=== PATIENT | female | born 1970 | race Caucasian/White ===

== ENCOUNTER 2018-06-22 09:03 | Emergency (ER) | payer OTHER ==
[~2018-06-22] VITALS: Ht 154.9 cm; Wt 59.0 kg
[~2018-06-22 09:03] MED LIST: BENTYL10 MG/ML; CIPRO500 MG PO; INDERAL LA80 MG; LEVSIN/SL0.125 MG PO; PRILOSEC20 MG; PROTONIX20 MG PO
[2018-06-22] MEDS ORDERED: SODIUM BICARBO325 MG PO (09:11)
== END 2018-06-22 15:13 | disposition home or self-care (01) ==
LOC: ER 09:03
DX: J03.90 Acute tonsillitis, unspecified (principal)

== ENCOUNTER 2018-06-23 09:31 | Inpatient (IN) | payer OTHER ==
[~2018-06-23] VITALS: Ht 154.9 cm; Wt 59.9 kg
[~2018-06-23 09:31] MED LIST changes: +SODIUM BICARBO325 MG PO
== END 2018-07-03 16:39 | disposition home or self-care (01) | DRG 193 ==
LOC: ER 09:31 → MEDI 22:14 → MEDJ 06-27 20:25
PROC: B246ZZZ Ultrasonography of Right and Left Heart (ICD-10-PCS; 2018-06-23)
PROC: 3E0F7GC Introduction of Other Therapeutic Substance into Respiratory Tract, Via Natural or Artificial Opening (ICD-10-PCS; principal; 2018-06-24)
PROC: 4A12X4Z Monitoring of Cardiac Electrical Activity, External Approach (ICD-10-PCS; 2018-06-24)
PROC: 4A033R1 Measurement of Arterial Saturation, Peripheral, Percutaneous Approach (ICD-10-PCS; 2018-06-25)
PROC: BB24Y0Z Computerized Tomography (CT Scan) of Bilateral Lungs using Other Contrast, Unenhanced and Enhanced (ICD-10-PCS; 2018-06-28)
PROC: BW2FY0Z Computerized Tomography (CT Scan) of Neck using Other Contrast, Unenhanced and Enhanced (ICD-10-PCS; 2018-06-28)
PROC: B54DZZZ Ultrasonography of Bilateral Lower Extremity Veins (ICD-10-PCS; 2018-06-28)
PROC: 02HV33Z Insertion of Infusion Device into Superior Vena Cava, Percutaneous Approach (ICD-10-PCS; 2018-06-29)
PROC: B246ZZZ Ultrasonography of Right and Left Heart (ICD-10-PCS; 2018-07-01)
DX: J18.9 Pneumonia, unspecified organism (principal); A41.9 Sepsis, unspecified organism; I30.8 Other forms of acute pericarditis; I47.1 Supraventricular tachycardia; J91.8 Pleural effusion in other conditions classified elsewhere; J03.80 Acute tonsillitis due to other specified organisms; E86.0 Dehydration; R09.02 Hypoxemia; K29.00 Acute gastritis without bleeding

== ENCOUNTER → 2018-06-23 11:31 | Outpatient (CLI) | payer OTHER | END | disposition home or self-care (01) | LOC: LAB 11:31 | DX: R07.89 Other chest pain (principal); R50.9 Fever, unspecified ==